=== PATIENT | female | born 1995 | race Asian ===

== ENCOUNTER 2023-04-05 10:21 | Emergency (ER) | payer MEDICAID ==
[~2023-04-05] VITALS: Ht 180.3 cm; Wt 73.0 kg
[2023-04-05 10:27] VITALS: BP 112/63
[2023-04-05 11:33] LABS: HEMATOCRIT. 46.2 % (36.0-48.0); HEMOGLOBIN. 15.7 g/dL (12.0-16.0); MEAN CORPUSCULAR HEMOGLOBIN 30.6 pg (28.0-32.0); MEAN CORPUSCULAR VOLUME 89.7 fL (81.0-99.0); MEAN PLATELET VOLUME 8.5 fl (7.4-10.4); PLATELET 197 x1000/uL (130-400); RED BLOOD CELL COUNT 5.15 mill/uL (4.2-5.4); RED CELL DISTRIBUTION WIDTH 13.6 % (11.6-14.6)
[2023-04-05 11:48] LABS: CHLORIDE 108 mEq/L (98-107)
[2023-04-05 15:58] LABS: PLATELET ESTIMATE NORMAL
== END 2023-04-05 14:47 | disposition left against medical advice (07) ==
LOC: ER 10:21
DX: Z53.21 Procedure and treatment not carried out due to patient leaving prior to being seen by health care provider (principal)
CPT/HCPCS: 36415; 80053; 85025; 99281